=== PATIENT | female | born 1950 | race Two or more races ===

== ENCOUNTER 2021-04-24 13:35 | Inpatient (IN) | payer OTHER ==
[~2021-04-24] VITALS: Ht 154.9 cm; Wt 79.4 kg
[~2021-04-24 13:35] MED LIST: ASPI-394 PO; CARV25TA55 PO; CLOP75TA70 PO; GLIP2.5T24 PO; ISOS1TAB28 PO; LISI-716 PO; SIMV-8 PO
[2021-04-24 15:42] LABS: Basophils # (auto) 0.1 10 ^3/uL (0-0.2); Basophils % (auto) 0.6 % (0.0-2.0); Eosinophils # (auto) 0.2 10 ^3/uL (0-0.8); Eosinophils % (auto) 2.6 % (0.0-7.0); Hematocrit 32.5 % (36.0-46.0); Hemoglobin 10.9 g/dL (12.2-16.2); Lymphocytes # (auto) 2.1 10 ^3/uL (0.4-5.4); Lymphocytes % (auto) 25.7 % (10.0-50.0); Mean Corpuscular Hemoglobin 29.2 pg (28.0-32.0); Mean Corpuscular Hgb Conc. 33.4 g/dL (32.0-36.0); Mean Corpuscular Volume 87.4 fL (80.0-100.0); Monocytes # (auto) 0.6 10 ^3/uL (0-1.3); Monocytes % (auto) 7.4 % (0.0-12.0); Neutrophils # (auto) 5.2 10 ^3/uL (1.6-8.6); Neutrophils % (auto) 63.7 % (37.0-80.0); Red Blood Cells 3.72 10^6/uL (4.0-5.20); Red Cell Distribution Width 13.9 % (11.8-14.3); White Blood Cell 8.2 10^3/uL (4.4-10.8)
[2021-04-24 16:00] LABS: Albumin 3.2 g/dL (3.4-5.0); Anion Gap 8 (5-15); Blood Urea Nitrogen 23 mg/dL (7-18); Calcium 8.7 mg/dL (8.5-10.1); Carbon Dioxide 23 mmol/L (21-32); Chloride 105 mmol/L (98-107); Glucose 236 mg/dL (74-106); Potassium 4.5 mmol/L (3.5-5.1); Sodium 136 mmol/L (136-145)
[2021-04-24 16:02] LABS: Alanine Aminotransferase 90 U/L (13-56); Aspartate Aminotransferase 60 U/L (15-37); BUN/Creatinine Ratio 17.2; GFR African American 51 mL/min; GFR Non-African American 42 mL/min
[2021-04-24 16:10] LABS: Alkaline Phosphatase 111 U/L (45-117); Bilirubin, Total 0.4 mg/dL (0.2-1.0); Total Protein 7.9 g/dL (6.4-8.2)
[2021-04-24] MEDS ORDERED: ASPirin 81 mg TAB PO ONE (18:15)
[2021-04-25 06:22] LABS: Urine Bacteria NONE SEEN /hpf (None Seen); Urine Blood Negative /uL (Negative); Urine Specific Gravity 1.033 (1.001-1.035); Urine WBC 45 /hpf (0 - 5)
[2021-04-25] MEDS ORDERED: POM (11:14)
[2021-04-25] MEDS ORDERED: ATOR40TA52 PO (11:14)
[2021-04-25] MEDS ORDERED: CHOL20007 PO (11:14)
[2021-04-25] MEDS ORDERED: DAPA1TAB4 PO (11:14)
[2021-04-25] MEDS ORDERED: METF-372 PO (11:14)
[2021-04-25] MEDS ORDERED: LINA290C PO (11:15)
[2021-04-25] MEDS ORDERED: NITROGLYCERIN 0.4 MG SL TAB SL PRN ×2 (11:30→13:45)
[2021-04-25] MEDS ORDERED: DEXTROSE (50%) 50ML SYRG IV PRN (11:30)
[2021-04-25] MEDS ORDERED: CEFEPIME 1 GM in SODIUM CHL 0.9% 50 ML IV ONE (11:30)
[2021-04-25] MEDS ORDERED: MORPHINE SULFATE INJECTION 2 MG/ML SYRG IV PRN ×3 (11:30→13:45)
[2021-04-25] MEDS ORDERED: SODIUM CHLORIDE 0.9% 2,000 ML IV ONE (11:30)
[2021-04-25 12:31] LABS: Phosphorus 3.4 mg/dL (2.5-4.90)
[2021-04-25] MEDS ORDERED: METOPROLOL SUCCINATE XL 50 MG TAB PO ONE (13:45)
[2021-04-25] MEDS ORDERED: ATORVASTATIN 20 MG TAB PO ONE (13:45)
[2021-04-25] MEDS ORDERED: hydrALAZINE HCL 20 MG/ML VL IV PRN (13:45)
[2021-04-25] MEDS ORDERED: ALUM & MAG HYDROX-SIMETH LIQ(MAALOX) 30 ML PO PRN (13:45)
[2021-04-25] MEDS ORDERED: HYDROcodone-ACET 5/325MG TAB PO PRN (13:45)
[2021-04-25] MEDS ORDERED: ENOXAPARIN SOD 40 MG/0.4 ML SYRINGE SC ONE (13:45)
[2021-04-25] MEDS ORDERED: METOCLOPRAMIDE HCL 5MG/ml INJ 2ml VIAL IV PRN (13:45)
[2021-04-25] MEDS ORDERED: LORazepam 0.5 MG TAB PO PRN (13:45)
[2021-04-25] MEDS ORDERED: ACETAMINOPHEN 325 MG TAB PO PRN (13:45)
[2021-04-25] MEDS: ACCU-CHEK COMFORT CURVE STRIP VI SCH ×2 (14:13→17:40)
[2021-04-25] MEDS: SODIUM CHLORIDE 0.9% 1,000 ML IV SCH ×2 (14:20→16:25)
[2021-04-25] MEDS: InsuLIN REG 1unit/0.01ml Soln (100units/ml) SC SCH ×2 (14:21→17:41)
[2021-04-25 15:00] LABS: INR 1.06 (0.9-1.15)
[2021-04-25 15:32] LABS: Amphetamine Screen, Urine NEGATIVE (NEGATIVE); Barbiturate Scree,Urine NEGATIVE (NEGATIVE); Benzodiazephine Screen, Urine NEGATIVE (NEGATIVE); Cannabinoid Screen, Urine NEGATIVE (NEGATIVE); Cocaine Screen, Urine NEGATIVE (NEGATIVE); Opiate Scree,Urine NEGATIVE (NEGATIVE); Phencyclidine Screen, Urine NEGATIVE (NEGATIVE)
[2021-04-25] MEDS ORDERED: CLOP75TA70 PO (17:18)
[2021-04-25] MEDS ORDERED: GLIP10TA9 PO (17:18)
[2021-04-25] MEDS: CALCIUM W/VIT D (600MG/400IU) TAB PO SCH (17:40)
[2021-04-25] MEDS ORDERED: CEFEPIME 1 GM in SODIUM CHL 0.9% 50 ML IV SCH (20:00)
[2021-04-25 22:00] VITALS: BP 164/82
[2021-04-26] MEDS: ACCU-CHEK COMFORT CURVE STRIP VI SCH ×4 (00:21→17:30)
[2021-04-26] MEDS: InsuLIN REG 1unit/0.01ml Soln (100units/ml) SC SCH ×4 (00:29→17:37)
[2021-04-26 05:00] VITALS: BP 132/76
[2021-04-26 09:00] VITALS: BP 145/75
[2021-04-26] MEDS ORDERED: CHOLECALCIFEROL (VITD3) 2,000 UNIT CAP/TAB PO SCH (10:00)
[2021-04-26] MEDS: CALCIUM W/VIT D (600MG/400IU) TAB PO SCH ×2 (10:30→17:30)
[2021-04-26] MEDS: ASPirin-EC 81 mg tab PO SCH (10:30)
[2021-04-26] MEDS: ENOXAPARIN SOD 40 MG/0.4 ML SYRINGE SC SCH (10:31)
[2021-04-26] MEDS: ISOSORBIDE MONONITRATE ER 60 MG TAB PO SCH (10:32)
[2021-04-26] MEDS: METOPROLOL SUCCINATE XL 50 MG TAB PO SCH (10:32)
[2021-04-26 13:00] VITALS: BP 145/79
[2021-04-26] MEDS: CLOPIDOGREL BISULFATE 75 MG TAB PO SCH (13:24)
[2021-04-26 17:00] VITALS: BP 135/71
[2021-04-26] MEDS: SODIUM CHLORIDE 0.9% 1,000 ML IV SCH (17:29)
[2021-04-26 22:00] VITALS: BP 150/70
[2021-04-26] MEDS ORDERED: ATORVASTATIN 20 MG TAB PO SCH (22:00)
[2021-04-27] MEDS: ACCU-CHEK COMFORT CURVE STRIP VI SCH ×2 (00:12→06:36)
[2021-04-27] MEDS: InsuLIN REG 1unit/0.01ml Soln (100units/ml) SC SCH ×2 (00:14→06:46)
[2021-04-27 05:00] VITALS: BP 165/84
[2021-04-27] MEDS: SODIUM CHLORIDE 0.9% 1,000 ML IV SCH (05:07)
[2021-04-27] MEDS ORDERED: CLOPIDOGREL BISULFATE 75 MG TAB PO SCH (10:00)
[2021-04-27] MEDS: ASPirin-EC 81 mg tab PO SCH (10:25)
[2021-04-27] MEDS: CALCIUM W/VIT D (600MG/400IU) TAB PO SCH (10:25)
[2021-04-27] MEDS: ISOSORBIDE MONONITRATE ER 60 MG TAB PO SCH (10:25)
[2021-04-27] MEDS: CLOPIDOGREL BISULFATE 75 MG TAB PO SCH (10:25)
[2021-04-27] MEDS: ENOXAPARIN SOD 40 MG/0.4 ML SYRINGE SC SCH (10:26)
[2021-04-27] MEDS: METOPROLOL SUCCINATE XL 50 MG TAB PO SCH (10:26)
[2021-04-27 15:06] VITALS: BP 145/70
== END 2021-04-27 16:00 | disposition home or self-care (01) | DRG 312 ==
LOC: ER 13:35 → TELE 04-25 11:22 → TELE-CENTR 04-25 16:06
PROVIDERS: ADMIT Hospitalist; ATTEND Family Medicine
DX: R55 Syncope and collapse (principal); I13.0 Hypertensive heart and chronic kidney disease with heart failure and stage 1 through stage 4 chronic kidney disease, or unspecified chronic kidney disease; E44.0 Moderate protein-calorie malnutrition; I47.1 Supraventricular tachycardia; Z20.822 Contact with and (suspected) exposure to COVID-19; N18.31 Chronic kidney disease, stage 3a; E11.65 Type 2 diabetes mellitus with hyperglycemia; R16.0 Hepatomegaly, not elsewhere classified; I50.9 Heart failure, unspecified; I25.5 Ischemic cardiomyopathy; D64.9 Anemia, unspecified; W18.30XA Fall on same level, unspecified, initial encounter; E11.22 Type 2 diabetes mellitus with diabetic chronic kidney disease; E11.40 Type 2 diabetes mellitus with diabetic neuropathy, unspecified; E78.5 Hyperlipidemia, unspecified; I25.10 Atherosclerotic heart disease of native coronary artery without angina pectoris; W18.39XA Other fall on same level, initial encounter; K76.0 Fatty (change of) liver, not elsewhere classified; Y99.8 Other external cause status; Y92.89 Other specified places as the place of occurrence of the external cause; Y93.89 Activity, other specified; Z68.30 Body mass index [BMI] 30.0-30.9, adult; Z79.02 Long term (current) use of antithrombotics/antiplatelets; Z79.84 Long term (current) use of oral hypoglycemic drugs; Z86.718 Personal history of other venous thrombosis and embolism; Z79.899 Other long term (current) drug therapy; Z90.710 Acquired absence of both cervix and uterus; Z95.5 Presence of coronary angioplasty implant and graft
CPT/HCPCS: 36415; 70450; 71045; 80053; 80307; 81001; 82962; 83036; 83735; 84100; 84443; 84484; 85025; 85610; 87040; 87086; 87426; 93005; 93306; 93886; 96360; 96372; G0378; J1815